=== PATIENT | male | born 1960 | race Caucasian/White ===

== ENCOUNTER 2021-11-09 19:29 | Emergency (ER) | payer MEDICAID ==
[~2021-11-09] VITALS: Ht 172.7 cm; Wt 170.0 kg
[2021-11-09 19:34] VITALS: BP 174/88
== END 2021-11-09 21:46 | disposition home or self-care (01) ==
LOC: ER 19:29
DX: S60.042A Contusion of left ring finger without damage to nail, initial encounter (principal); Z79.1 Long term (current) use of non-steroidal anti-inflammatories (NSAID); W22.8XXA Striking against or struck by other objects, initial encounter; Y93.89 Activity, other specified; Y92.89 Other specified places as the place of occurrence of the external cause; Y99.8 Other external cause status
CPT/HCPCS: 11740; 73130

== ENCOUNTER 2022-10-18 11:17 | Inpatient (IN) | payer MEDICAID ==
[~2022-10-18] VITALS: Ht 175.3 cm; Wt 75.7 kg
[2022-10-18 11:59] LABS: Basophils # (auto) 0 10 ^3/uL (0-0.2); Basophils % (auto) 0.7 % (0.0-2.0); Eosinophils # (auto) 0.2 10 ^3/uL (0-0.8); Eosinophils % (auto) 2.5 % (0.0-7.0); Hematocrit 43.5 % (41.0-53.0); Hemoglobin 14.4 g/dL (13.5-17.5); Lymphocytes # (auto) 0.7 10 ^3/uL (0.4-5.4); Mean Corpuscular Hgb Conc. 33.2 g/dL (32.0-36.0); Mean Corpuscular Volume 90.4 fL (80.0-100.0); Monocytes # (auto) 0.3 10 ^3/uL (0-1.3); Monocytes % (auto) 4.9 % (0.0-12.0); Neutrophils # (auto) 5.5 10 ^3/uL (1.6-8.6); Neutrophils % (auto) 80.9 % (37.0-80.0); Nucleated Red Blood Cells % 0.2 %; Red Blood Cells 4.81 10^6/uL (4.5-5.90); Red Cell Distribution Width 13.8 % (11.8-14.3); White Blood Cell 6.8 10^3/uL (4.4-10.8)
[2022-10-18 12:25] LABS: Potassium 4.3 mmol/L (3.5-5.1)
[2022-10-18 12:31] LABS: BUN/Creatinine Ratio 15.5 (10.0-20.0); Bilirubin, Total 0.7 mg/dL (0.2-1.0)
[2022-10-18] MEDS ORDERED: NITROGLYCERIN 0.4 MG SL TAB SL PRN (13:45)
[2022-10-18] MEDS ORDERED: MORPHINE SULFATE INJ 2 MG/ml SYRG IV PRN (13:45)
[2022-10-18] MEDS ORDERED: LOSA100T58 PO (16:41)
[2022-10-18] MEDS ORDERED: ASPI325T4 PO (16:41)
[2022-10-18 17:02] VITALS: BP 171/85
[2022-10-18 17:03] VITALS: BP_SYST 177; BP_SYST 185; BP_DIAS 104; BP_DIAS 96
[2022-10-18] MEDS: hydrALAZINE HCL 20 MG/ML VL IV PRN (18:18)
[2022-10-18 18:37] LABS: Urine Bacteria NONE SEEN /hpf (None Seen); Urine Blood Negative /uL (Negative); Urine Specific Gravity 1.004 (1.001-1.035); Urine WBC <1 /hpf (0 - 3)
[2022-10-18 18:54] VITALS: BP 141/80
[2022-10-18 22:00] VITALS: BP 129/72
[2022-10-18 22:01] VITALS: BP 136/86
[2022-10-18 22:02] VITALS: BP 140/84
[2022-10-19 05:00] VITALS: BP 147/87
[2022-10-19 05:01] VITALS: BP 144/90
[2022-10-19 05:02] VITALS: BP 129/91
[2022-10-19 06:47] LABS: Potassium 3.7 mmol/L (3.5-5.1)
[2022-10-19 06:48] LABS: Basophils # (auto) 0.1 10 ^3/uL (0-0.2); Basophils % (auto) 1.1 % (0.0-2.0); Eosinophils # (auto) 0.3 10 ^3/uL (0-0.8); Eosinophils % (auto) 4.9 % (0.0-7.0); Hematocrit 41.4 % (41.0-53.0); Hemoglobin 14.1 g/dL (13.5-17.5); Lymphocytes # (auto) 1.1 10 ^3/uL (0.4-5.4); Lymphocytes % (auto) 16.9 % (10.0-50.0); Mean Corpuscular Hemoglobin 30.3 pg (28.0-32.0); Mean Corpuscular Hgb Conc. 34.1 g/dL (32.0-36.0); Mean Corpuscular Volume 89.1 fL (80.0-100.0); Monocytes # (auto) 0.4 10 ^3/uL (0-1.3); Monocytes % (auto) 6.9 % (0.0-12.0); Neutrophils # (auto) 4.4 10 ^3/uL (1.6-8.6); Neutrophils % (auto) 70.2 % (37.0-80.0); Nucleated Red Blood Cells % 0.1 %; Red Blood Cells 4.65 10^6/uL (4.5-5.90); Red Cell Distribution Width 13.5 % (11.8-14.3); White Blood Cell 6.3 10^3/uL (4.4-10.8)
[2022-10-19 07:05] LABS: Albumin 3.5 g/dL (3.4-5.0); BUN/Creatinine Ratio 16.2 (10.0-20.0); Bilirubin, Total 0.5 mg/dL (0.2-1.0); Calcium 8.6 mg/dL (8.5-10.1); Total Protein 6.5 g/dL (6.4-8.2)
[2022-10-19 08:00] VITALS: BP 163/101
[2022-10-19] MEDS: hydrALAZINE HCL 20 MG/ML VL IV PRN (08:11)
[2022-10-19 08:30] VITALS: BP 163/101
[2022-10-19] MEDS ORDERED: LOSARTAN POTASSIUM 50 MG TAB PO ONE (09:45)
[2022-10-19] MEDS ORDERED: NIFE1TAB36 PO (09:55)
[2022-10-19] MEDS ORDERED: NIFEdipine ER 30 MG TAB PO ONE (10:00)
[2022-10-19 12:13] VITALS: BP 141/92
== END 2022-10-19 13:00 | disposition home or self-care (01) | DRG 199 ==
LOC: ER 11:17 → TELE 13:37 → TELE-CENTR 16:23
PROVIDERS: ADMIT Nurse Practitioner Family; ATTEND Internal Medicine
DX: I16.0 Hypertensive urgency (principal); Z88.6 Allergy status to analgesic agent; I10 Essential (primary) hypertension; Z90.79 Acquired absence of other genital organ(s); Z88.8 Allergy status to other drugs, medicaments and biological substances
CPT/HCPCS: 36415; 70450; 80053; 81001; 83036; 84443; 84484; 85025; 93005; 93886; G0378